=== PATIENT | female | born 1945 | race Caucasian/White ===

== ENCOUNTER 2017-02-18 06:06 | Emergency (ER) | payer BC, OTHER ==
[~2017-02-18] VITALS: Ht 170.2 cm; Wt 112.5 kg
[~2017-02-18 06:06] MED LIST: ASPIR-TRIN325 M1 PO; COUMADIN,JANTOV10 MG PO; COUMADIN,JANTOVE6 MG PO; DIOVAN160 MG PO; FLECAINIDE ACE100 MG PO; Flexeril PO; Percocet 7.5/325,End PO; SYNTHROID75 MCG PO; Synthroid PO; TAZTIA XT PO; TAZTIA XT180 M1 PO; THERAGRAN1 TABLET PO; Tambocor PO
[2017-02-18 06:47] LABS: HEMATOCRIT 40.4 % (36.0-46.0); MCH 32.3 PG (29.0-34.0); MCHC 34.4 G/DL (30.0-36.0); MCV 93.7 FL (83-99); MEAN PLAT.VOLUME 9.2 uM^3 (9.5-12.4); PLATELET COUNT 313 K/uL (156-360); RBC DIS.WIDTH-CV 12.3 % (11.8-14.6); RED BLOOD COUNT 4.31 M/uL (3.80-5.20); WHITE BLOOD COUNT 8.7 K/uL (4.1-10.2)
[2017-02-18 07:01] LABS: CHLORIDE 100 mEq/L (99-109); POTASSIUM 3.2 mEq/L (3.7-5.4); SODIUM 139 mEq/L (136-147)
[2017-02-18 07:03] LABS: GLUCOSE 135 mg/dL (70-99)
[2017-02-18 07:04] LABS: ANION GAP 13 MEQ/L (2-14)
[2017-02-18 07:05] LABS: TOTAL BILIRUBIN 0.4 mg/dL (0.0-1.0)
[2017-02-18 07:06] LABS: ALKALINE PHOSPHATASE 66 IU/L (3-129)
[2017-02-18 07:07] LABS: GFR ESTIMATE (CALCULATED) > 59 mL/min/
[2017-02-18 07:08] LABS: UREA NITROGEN (BUN) 15 mg/dL (9-23)
[2017-02-18 08:33] LABS: ADD MIUA? YES; BILIRUBIN NEGATIVE; BLOOD NEGATIVE; COLOR YELLOW ((YELLOW)); GLUCOSE (STRIP) NEGATIVE; KETONES NEGATIVE; LEUKOCYTES TRACE; NITRITE NEGATIVE; PROTEIN (STRIP) 30; SPECIFIC GRAVITY 1.014 (1.000-1.030); UROBILINOGEN 0.2 MG/DL (0.2-1.0)
[2017-02-18 09:06] LABS: BACTERIA NONE SEEN /HPF; BUDDING YEAST 2+; EPITHELIAL CELLS NONE SEEN /HPF; MUCUS TRACE /LPF; UCUL ADDED? NO; WHITE BLOOD CELLS 0-5 /HPF (0-5)
[2017-02-18] MEDS ORDERED: TRAMADOL HCL50 MG PO (10:41)
[2017-02-18 10:49] VITALS: BP 136/74
[2017-02-20] MEDS ORDERED: SYNTHROID150 MCG PO (13:17)
[2017-02-20] MEDS ORDERED: HYDROCHLOROTHIA25 MG PO (13:18)
[2017-02-20] MEDS ORDERED: ELIQUIS5 MG PO (13:18)
[2017-02-20] MEDS ORDERED: DAILY VALUE1 EACH PO (13:19)
[2017-02-20] MEDS ORDERED: FISH OIL CONC1000 M1 PO (13:20)
[2017-02-20] MEDS ORDERED: VITAMIN D34000 UNIT PO (13:20)
[2017-02-20] MEDS ORDERED: CO Q-10100 MG PO (13:20)
[2017-02-20] MEDS ORDERED: VITAMIN C1000 MG PO (13:21)
[2017-02-20] MEDS ORDERED: TUMERSAID TABL1 EACH PO (13:21)
[2017-02-20] MEDS ORDERED: CURCUMIN (13:23)
== END 2017-02-18 10:50 | disposition home or self-care (01) ==
LOC: EME 06:06
DX: R10.9 Unspecified abdominal pain (principal); I10 Essential (primary) hypertension; E06.3 Autoimmune thyroiditis; G47.30 Sleep apnea, unspecified; G89.29 Other chronic pain; Z87.442 Personal history of urinary calculi; Z85.3 Personal history of malignant neoplasm of breast; Z95.0 Presence of cardiac pacemaker; Z87.891 Personal history of nicotine dependence
CPT/HCPCS: 71010; 74176; 80053; 81003; 85027; 99281; 99285; J2270; J2405; J3010; J7030

== ENCOUNTER → 2017-03-01 | Outpatient (CLI) | payer BC, OTHER ==
[~2017-03-01] MED LIST changes: +CO Q-10100 MG PO; +CURCUMIN; +DAILY VALUE1 EACH PO; +ELIQUIS5 MG PO; +FISH OIL CONC1000 M1 PO; +HYDROCHLOROTHIA25 MG PO; +SYNTHROID150 MCG PO; +TRAMADOL HCL50 MG PO; +TUMERSAID TABL1 EACH PO; +VITAMIN C1000 MG PO; +VITAMIN D34000 UNIT PO
== END | disposition home or self-care (01) ==
LOC: NUC 07:30
DX: K52.9 Noninfective gastroenteritis and colitis, unspecified (principal)
CPT/HCPCS: 78226; A9537

== ENCOUNTER 2017-04-30 07:54 | Emergency (ER) | payer BC, OTHER ==
[~2017-04-30] VITALS: Ht 170.2 cm; Wt 114.2 kg
[2017-04-30 08:25] LABS: BASOPHIL COUNT 0.1 K/uL (0-0.1); EOSINOPHIL (%) 2.6 % (0-5); EOSINOPHIL COUNT 0.2 K/uL (0-0.3); HEMATOCRIT 39.4 % (36.0-46.0); IMMATURE GRANULOCYTE (%) 0.5 % (0.0-0.7); INSTRUMENT ABS NEUTROPHIL CT 4.3 K/uL; LYMPHOCYTE COUNT 1.4 K/uL (1.0-2.8); MCH 32.4 PG (29.0-34.0); MCHC 33.8 G/DL (30.0-36.0); MCV 95.9 FL (83-99); MEAN PLAT.VOLUME 9.1 uM^3 (9.5-12.4); MONOCYTE (%) 9.8 % (3-12); MONOCYTE COUNT 0.7 K/uL (0-0.8); NEUTROPHIL (%) 64.6 % (45-76); NEUTROPHIL COUNT 4.3 K/uL (1.8-6.4); PLATELET COUNT 271 K/uL (156-360); RBC DIS.WIDTH-CV 12.4 % (11.8-14.6); RBC DIS.WIDTH-SD 43.6 % (39-53); RED BLOOD COUNT 4.11 M/uL (3.80-5.20); WHITE BLOOD COUNT 6.6 K/uL (4.1-10.2)
[2017-04-30 08:33] LABS: CHLORIDE 106 mEq/L (99-109); POTASSIUM 3.9 mEq/L (3.7-5.4); SODIUM 141 mEq/L (136-147)
[2017-04-30 08:35] LABS: GLUCOSE 124 mg/dL (70-99)
[2017-04-30 08:36] LABS: ANION GAP 10 MEQ/L (2-14)
[2017-04-30 08:39] LABS: GFR ESTIMATE (CALCULATED) > 59 mL/min/
[2017-04-30 08:40] LABS: UREA NITROGEN (BUN) 12 mg/dL (9-23)
[2017-04-30 11:57] VITALS: BP 128/98
== END 2017-04-30 12:38 | disposition home or self-care (01) ==
LOC: EME 07:54
PROVIDERS: Emergency Medicine
DX: I10 Essential (primary) hypertension (principal); I48.91 Unspecified atrial fibrillation; Z79.01 Long term (current) use of anticoagulants; E06.3 Autoimmune thyroiditis; Z85.3 Personal history of malignant neoplasm of breast; Z90.10 Acquired absence of unspecified breast and nipple; Z98.1 Arthrodesis status; Z87.891 Personal history of nicotine dependence
CPT/HCPCS: 71010; 80048; 85025; 93005; 99281; 99285

== ENCOUNTER → 2017-12-02 | Outpatient (CLI) | payer BC, OTHER | END | disposition home or self-care (01) | LOC: NUC 06:47 | PROC: DWY5GYZ Isotope Administration to Whole Body using Other Isotope (ICD-10-PCS; principal; 2017-12-02) | DX: R10.13 Epigastric pain (principal); R14.0 Abdominal distension (gaseous); R11.0 Nausea | CPT/HCPCS: 78264; A9541 ==

== ENCOUNTER 2017-12-23 12:23 | Day surgery (SDC) | payer BC, OTHER ==
[~2017-12-23] VITALS: Ht 170.2 cm; Wt 108.9 kg
[~2017-12-23 12:23] MED LIST changes: +GINGER250 MG PO; +HYDRALAZINE HCL50 MG PO; +MAGNESIUM100 MG PO; +MULTIVITAMIN1 EAC2 PO; +OMEGA 3 500 SO1 EACH PO; +VALSARTAN320 MG PO; +VITAMIN C500 M1 PO; +VITAMIN D32000 UNI1 PO; +XARELTO20 MG PO
== END 2017-12-23 15:57 | disposition home or self-care (01) ==
LOC: CATH 12:23
DX: Z45.010 Encounter for checking and testing of cardiac pacemaker pulse generator [battery] (principal); I44.2 Atrioventricular block, complete; I48.91 Unspecified atrial fibrillation; I10 Essential (primary) hypertension; E03.9 Hypothyroidism, unspecified; E11.9 Type 2 diabetes mellitus without complications; I25.10 Atherosclerotic heart disease of native coronary artery without angina pectoris; I73.9 Peripheral vascular disease, unspecified; Z85.3 Personal history of malignant neoplasm of breast; Z86.718 Personal history of other venous thrombosis and embolism; Z79.82 Long term (current) use of aspirin; Z79.4 Long term (current) use of insulin; Z79.891 Long term (current) use of opiate analgesic; Z95.1 Presence of aortocoronary bypass graft
CPT/HCPCS: J0360; J0690; J1200; J2250; J3010; S0020